=== PATIENT | female | born 1995 | race African-American/Black ===

== ENCOUNTER 2017-06-21 13:28 | Emergency (ER) | payer MEDICAID ==
[~2017-06-21] VITALS: Ht 170.2 cm; Wt 62.1 kg
[2017-06-21] MEDS: IV NORMAL SALINE 1000 ML BAG IV ONE (14:17)
[2017-06-21] MEDS: ONDANSETRON 4 MG/2 ML VIAL IV ONE (14:23)
[2017-06-21] MEDS: MORPHINE SULFATE 2 MG/1 ML DISP.SYRIN IV ONE (14:27)
[2017-06-21 14:31] LABS: CREATININE 0.9 mg/dL (0.6-1.3)
[2017-06-21] MEDS ORDERED: ONDANSETRON 4 MG/2 ML VIAL ONE (14:32)
[2017-06-21 14:33] LABS: BASOPHILS % (AUTO) 0.7 % (0.0-2.0); EOSINOPHILS % (AUTO) 0.6 % (0.0-7.0); HEMATOCRIT 39.1 % (37-47); HEMOGLOBIN 12.8 G/DL (12.0-16.0); LYMPHOCYTES # (AUTO) 2.3 K/UL (0.8-4.8); LYMPHOCYTES % (AUTO) 35.1 % (20.5-51.5); MEAN CORPUSCULAR HEMOGLOBIN 30.8 UUG (27.0-31.0); MEAN CORPUSCULAR HGB CONC 33 g/dL (32.0-37.0); MEAN CORPUSCULAR VOLUME 93.8 FL (81.0-99.0); MONOCYTES % (AUTO) 14.6 % (0.0-11.0); NEUTROPHILS # (AUTO) 3.3 K/UL (1.8-8.9); PLATELET COUNT (AUTO) 236 K/UL (150-450); RED BLOOD CELL COUNT(AUTO) 4.16 MIL/UL (4.2-5.4); WHITE BLOOD COUNT (AUTO) 6.6 K/UL (4.0-11.2)
[2017-06-21] MEDS ORDERED: MORPHINE SULFATE 2 MG/1 ML DISP.SYRIN ONE (14:33)
[2017-06-21 14:37] LABS: BILIRUBIN,DIRECT 0.1 mg/dL (0.0-0.2); BILIRUBIN,TOTAL 0.5 mg/dL (0.2-1.0); TOTAL PROTEIN, SERUM 7.9 g/dL (6.4-8.2)
[2017-06-21 14:59] LABS: *BILIRUBIN,URIN NEGATIVE (NEGATIVE); *BLOOD, URINE NEGATIVE (NEGATIVE); *CLARITY,URINE CLEAR (CLEAR); *COLOR,URINE YELLOW (YELLOW); *KETONES,URINE NEGATIVE (NEGATIVE); *PROTEIN,URINE 1+ (NEGATIVE); LEUKOCYTE ESTERASE ,URINE NEGATIVE (NEGATIVE); NITRITE, URINE NEGATIVE (NEGATIVE); PH,URINE 8.5 (5.0-8.0); UGLUCOSE NEGATIVE (NEGATIVE)
[2017-06-21 15:14] LABS: BACTERIA,URINE FEW /HPF (NONE SEEN); MUCUS,URINE FEW /LPF (0-FEW); RBC,URINE 0-3 /HPF (0-3); SQUAMOUS EPITHELIAL CELL,UR MODERATE /HPF (NONE SEEN); WBC,URINE 0-3 /HPF (0-3)
[2017-06-21] MEDS ORDERED: NORMAL SALINE FLUSH 10 ML DISP.SYRIN ONE (15:21)
[2017-06-21] MEDS ORDERED: IOHEXOL 300MG/ML 100 ML INFUS..BTL ONE (15:22)
[2017-06-21] MEDS ORDERED: IV NORMAL SALINE 250 ML IV ONE (15:22)
--- NOTE | 2017-06-21 15:25 | NUR ---
Pt to CT via [facility] mauricio noted at this time.
--- NOTE | 2017-06-21 15:52 | NUR ---
Pt back from CT, NAD noted.
--- NOTE | 2017-06-21 17:00 | NUR ---
IV removed. Catheter intact and site benign. Pressure and 4x4 gauze applied to site. No bleeding noted.
--- NOTE | 2017-06-21 17:00 | NUR ---
Patient discharged to home in stable conditon with family. Written and verbal after care instructions given. Patient verbalizes understanding of instructions. Stressed follow up.
[2017-06-21 17:05] VITALS: BP 117/84
== END 2017-06-21 17:06 | disposition home or self-care (01) ==
LOC: ER 13:28
DX: S39.91XA Unspecified injury of abdomen, initial encounter (principal); K43.9 Ventral hernia without obstruction or gangrene; G89.29 Other chronic pain; V43.52XA Car driver injured in collision with other type car in traffic accident, initial encounter; S39.92XA Unspecified injury of lower back, initial encounter; Y93.89 Activity, other specified; Y92.413 State road as the place of occurrence of the external cause; Y99.9 Unspecified external cause status
CPT/HCPCS: 36415; 83690; 84703; 85025; 85730; A4663; J2270; J2405; J3490; J7030; J7050; Q9967

== ENCOUNTER 2017-09-26 17:54 | Emergency (ER) | payer SELFPAY ==
[~2017-09-26] VITALS: Ht 170.2 cm; Wt 61.7 kg
[2017-09-26] MEDS ORDERED: ONDA4TAB11 PO (18:42)
[2017-09-26] MEDS ORDERED: DONE10TA44 PO (18:42)
[2017-09-26] MEDS ORDERED: ACET-2154 PO (18:42)
[2017-09-26] MEDS ORDERED: DENO60DI SQ (18:42)
[2017-09-26] MEDS ORDERED: MIRA25TA PO (18:42)
[2017-09-26] MEDS ORDERED: QUET25TA PO (18:42)
[2017-09-26] MEDS ORDERED: ACETAMINOPHEN 325 MG TABLET PO ONE (20:45)
--- NOTE | 2017-09-26 20:49 | NUR ---
PATIENT C/O 06/30 UMBILICAL HERNIA. REQUESTING PAIN MED. DR WOOD MADE AWARE
--- NOTE | 2017-09-26 20:59 | NUR ---
PATIENT STATES OK TO GO HOME. PAIN IS DECREASING
[2017-09-26] MEDS ORDERED: HYDROCODONE/APAP 10-325 MG TABLET PO ONE (21:00)
--- NOTE | 2017-09-26 21:01 | NUR ---
Patient discharged to home in stable conditon with mother taking patient home. Written and verbal after care instructions given. Patient verbalizes understanding of instructions. walked out of ER with no distress noted
[2017-09-26 21:02] VITALS: BP 118/60
[2017-09-26] MEDS ORDERED: HYDROCODONE/APAP 10-325 MG TABLET ONE (21:06)
== END 2017-09-26 21:05 | disposition home or self-care (01) ==
LOC: ER 17:57
DX: B34.9 Viral infection, unspecified (principal)
CPT/HCPCS: 36415; 86403; 87070; 87400; A4663